=== PATIENT | male | born 1990 ===

== ENCOUNTER 2020-03-05 06:48 | Outpatient (CLI) | payer OTHER ==
--- NOTE | 2020-03-05 09:03 | Ultrasound Report ---
ULTRASOUND ABDOMEN, COMPLETE SCROTAL ULTRASOUND INDICATION: left lower quadrant pain. COMPARISON: No relevant prior imaging study available. FINDINGS: ABDOMEN: Pancreas: No significant abnormality. Abdominal Aorta: Normal size. IVC: No significant abnormality. Liver: The liver measures 16 cm in length. No significant abnormality. Normal hepatopedal blood flow in the main portal vein. Gallbladder: Multiple amount of sludge but no wall thickening or other abnormality. Bile ducts: No significant abnormality. Common bile duct measures 6 mm. Kidneys: Right: 10.8 cm in length. No significant abnormality. Left: 11.1 cm in length. No signif icant abnormality. Spleen: No significant abnormality. Free fluid: None. Additional Findings: None. SCROTUM: Testicles are both normal in size and appearance with preserved blood flow. There are small bilateral hydroceles and tiny bilateral epididymal head cysts measuring 3 mm on the right and 5 mm on the left . No hernia or varicocele identified. IMPRESSION: 1. Minimal bladder sludge but otherwise unremarkable appearance of the abdomen. 2. Small bilateral hydroceles and tiny bilateral epididymal head cysts. Signer Name: Eric Dillon MD Signed: 03/05/2020 8:58 AM Workstation Name: [id number]
== END 2020-03-05 06:49 | disposition home or self-care (01) ==
LOC: US 06:48
PROVIDERS: ATTEND Nurse Practitioner Family
DX: N43.2 Other hydrocele (principal); N50.3 Cyst of epididymis
CPT/HCPCS: 76700; 93975